=== PATIENT | female | born 1995 | race Caucasian/White ===

== ENCOUNTER 2021-04-16 05:55 | Inpatient (IN) ==
[2021-04-16] MEDS ORDERED: BUTORPHANOL 2 MG/ML VIAL IV PRN (06:03)
[2021-04-16] MEDS ORDERED: ONDANSETRON 4 MG/2 ML VIAL IV PRN (06:03)
[2021-04-16] MEDS: LACTATED RINGERS 1,000 ML IV SCH ×2 (06:23→18:11)
[2021-04-16 06:34] LABS: Basophils % 0.2 % (0.0-0.8); Eosinophils # 0.1 10*3/uL (0.0-0.87); Eosinophils % 1.4 % (0.00-10.9); Hematocrit 34.5 VOL% (35.7-47.0); Hemoglobin 11.9 GM/DL (12.0-16.0); Immature Granulocytes % 0.5 %; Immature Granulocytes Absolute 0.04 #; Lymphocytes # 2.8 10*3/uL (1.4-4.0); Lymphocytes % 31.9 % (21.3-54.2); Mean Corpuscular HGB Conc 34.5 GM/DL (32-36); Mean Platelet Volume 11.6 FL (9.6-12.0); Monocytes % 7.3 % (1.7-12.7); Neutrophils % 58.7 % (38.7-73.9); Platelet Count 180 T/CUMM (130-400); Red Blood Count 3.79 MC/CUMM (3.8-5.5); Red Cell Distribution Width 13.3 % (9.3-17.3); White Blood Count 8.9 T/CUMM (4-12)
[2021-04-16 06:57] LABS: Albumin 2.7 G/DL (3.4-5.0); Bilirubin,Total 0.4 MG/DL (0.20-1.00); Calcium 9.2 MG/DL (8.5-10.1); Osmolality,Calculated 278.4 MOS/KG (273-304); Potassium 3.5 MMOL/L (3.5-5.1); Total Protein 6.7 G/DL (6.4-8.2)
[2021-04-16] MEDS ORDERED: OXYTOCIN/LR 20 UNIT/1,000 ML BAG IV ONE (16:45)
[2021-04-16] MEDS ORDERED: ePHEDrine 50 MG/ML VIAL IV PRN (17:21)
[2021-04-16] MEDS ORDERED: LACTATED RINGERS 1,000 ML IV ONE (17:21)
[2021-04-16] MEDS ORDERED: FAMOTIDINE 20 MG/2 ML VIAL IV ONE (17:21)
[2021-04-16] MEDS ORDERED: CITRIC ACID/SODIUM CITRATE 30 ML UDCUP PO ONE (17:21)
[2021-04-16] MEDS ORDERED: NALOXONE 0.4 MG/ML VIAL IV PRN (17:22)
[2021-04-16] MEDS ORDERED: hydrOXYzine HCL 25 MG/1 ML VIAL IM PRN (17:22)
[2021-04-16] MEDS ORDERED: PROMETHAZINE 25 MG/1 ML VIAL IM ONE (17:22)
[2021-04-16] MEDS ORDERED: diphenhydrAMINE 50 MG/1 ML VIAL IV PRN ×2 (17:22)
[2021-04-16] MEDS ORDERED: LACTATED RINGERS 1,000 ML IV SCH (17:30)
[2021-04-16] MEDS: fentaNYL 2 MCG/ROPIV 0.2% EPID 100 ML EPIDURAL SCH (17:53)
[2021-04-16] MEDS: OXYTOCIN/LR 20 UNIT/1,000 ML BAG IV SCH (18:35)
[2021-04-16 19:27] LABS: Bilirubin,Urine Negative (Negative); Blood, Urine Negative (Negative); Glucose,Urine (UA) Negative (Negative); Ketones,Urine 20 mg/dL (Negative); Mucus,Urine Few /LPF (Occasional); Nitrite,Urine Negative (Negative); Protein,Urine Negative; RBC,Urine <1 /HPF (0-4); Squamous Epithelial Cell,Urine Occasional /HPF (0-10); Urine Appearance CLEAR (Clear); Urine Color Yellow (Yellow); Urine Specific Gravity 1.023 (1.001-1.035); Urine Urobilinogen < 2.0 EU/DL (0.2-1.0)
[2021-04-17] MEDS: fentaNYL 2 MCG/ROPIV 0.2% EPID 100 ML EPIDURAL SCH ×3 (01:03→16:00)
[2021-04-17] MEDS: LACTATED RINGERS 1,000 ML IV SCH ×2 (01:34→09:31)
[2021-04-17] MEDS ORDERED: INFLUENZA VIRUS VACCINE 0.5 ML SYRINGE IM ONE (09:00)
[2021-04-17] MEDS: OXYTOCIN/LR 20 UNIT/1,000 ML BAG IV SCH (10:04)
[2021-04-17] MEDS ORDERED: LIDOCAINE 2% 5 ML VIAL ONE (14:52)
[2021-04-17] MEDS ORDERED: CITRIC ACID/SODIUM CITRATE 30 ML UDCUP PO ONE (18:33)
[2021-04-17] MEDS ORDERED: ceFAZolin 3,000 MG in SYRINGE 1 EACH IV ONE (18:33)
[2021-04-17] MEDS ORDERED: FAMOTIDINE 20 MG/2 ML VIAL IV ONE (18:33)
[2021-04-17] MEDS ORDERED: TRANEXAMIC ACID 1,000 MG/10 ML VIAL ONE (19:48)
[2021-04-17] MEDS ORDERED: OXYTOCIN/LR 20 UNIT/1,000 ML BAG IV ONE ×2 (19:48→21:41)
[2021-04-17] MEDS ORDERED: SODIUM CHLORIDE 0.9% 100 ML IV ONE (19:48)
[2021-04-17] MEDS ORDERED: miSOPROStoL 200 MCG TABLET ONE (19:48)
[2021-04-17] MEDS ORDERED: METHYLERGONOVINE 0.2 MG/1 ML AMP ONE (19:49)
[2021-04-17] MEDS ORDERED: CARBOPROST TROMETHAMINE 250 MCG/ML AMP IM ONE ×2 (19:49→21:04)
[2021-04-17] MEDS ORDERED: METHYLERGONOVINE 0.2 MG/1 ML AMP IM ONE (21:02)
[2021-04-17 21:21] LABS: Cord Venous Blood HCO3 20.2 MMOL/L; Cord Venous Blood PCO2 42.1 MMHG; Cord Venous Blood PO2 23.1
[2021-04-17] MEDS ORDERED: IBUPROFEN 800 MG TABLET PO PRN (21:41)
[2021-04-17] MEDS ORDERED: ACETAMINOPHEN 325 MG TABLET PO PRN (21:41)
[2021-04-17] MEDS ORDERED: SIMETHICONE CHEW 80 MG TABLET PO PRN (21:41)
[2021-04-17] MEDS ORDERED: ONDANSETRON 4 MG/2 ML VIAL IV PRN (21:41)
[2021-04-17] MEDS ORDERED: RHO(D) IMMUNE GLOBULIN 300 MCG SYRINGE IM ONE (21:41)
[2021-04-17] MEDS ORDERED: LIDOCAINE MPF 2% /EPI 20 ML VIAL ONE (21:48)
[2021-04-17] MEDS ORDERED: LACTATED RINGERS 1,000 ML IV SCH (22:00)
[2021-04-18] MEDS: oxyCODONE/ACETAMINOPHEN 5-325 MG TABLET PO PRN ×3 (00:24→22:09)
[2021-04-18] MEDS: KETOROLAC 30 MG/1 ML VIAL IV SCH ×4 (03:09→17:31)
[2021-04-18] MEDS ORDERED: ACETAMINOPHEN 500 MG TABLET PO SCH (03:30)
[2021-04-18] MEDS ORDERED: oxyCODONE/ACETAMINOPHEN 5-325 MG TABLET PO ONE (04:35)
[2021-04-18 06:13] LABS: Basophils % 0.1 % (0.0-0.8); Hematocrit 31.7 VOL% (35.7-47.0); Hemoglobin 10.9 GM/DL (12.0-16.0); Immature Granulocytes % 0.7 %; Immature Granulocytes Absolute 0.12 #; Lymphocytes # 1.4 10*3/uL (1.4-4.0); Lymphocytes % 8.4 % (21.3-54.2); Mean Corpuscular HGB Conc 34.4 GM/DL (32-36); Mean Corpuscular Volume 92.2 FL (87-102); Mean Platelet Volume 12.2 FL (9.6-12.0); Neutrophils % 87.8 % (38.7-73.9); Platelet Count 136 T/CUMM (130-400); Red Blood Count 3.44 MC/CUMM (3.8-5.5); Red Cell Distribution Width 13.2 % (9.3-17.3); White Blood Count 16.8 T/CUMM (4-12)
[2021-04-18] MEDS: MULTIVITAMIN (PRENATAL) TABLET PO SCH (09:18)
[2021-04-18] MEDS: DOCUSATE SODIUM 100 MG CAPSULE PO SCH ×2 (09:19→22:08)
[2021-04-18 12:43] LABS: Basophils % 0.1 % (0.0-0.8); Eosinophils % 0.1 % (0.00-10.9); Hemoglobin 10.1 GM/DL (12.0-16.0); Immature Granulocytes % 0.4 %; Immature Granulocytes Absolute 0.05 #; Lymphocytes # 1.7 10*3/uL (1.4-4.0); Mean Corpuscular HGB Conc 34.8 GM/DL (32-36); Mean Corpuscular Volume 91.5 FL (87-102); Mean Platelet Volume 11.8 FL (9.6-12.0); Monocytes % 3.7 % (1.7-12.7); Neutrophils % 83.7 % (38.7-73.9); Platelet Count 176 T/CUMM (130-400); Red Blood Count 3.17 MC/CUMM (3.8-5.5); Red Cell Distribution Width 13.2 % (9.3-17.3); White Blood Count 14.1 T/CUMM (4-12)
[2021-04-18] MEDS: MAGNESIUM HYDROXIDE SUSP 30 ML UDCUP PO PRN (18:00)
[2021-04-18] MEDS: IBUPROFEN 800 MG TABLET PO PRN (22:09)
[2021-04-19] MEDS: IBUPROFEN 800 MG TABLET PO PRN (03:51)
[2021-04-19] MEDS: MAGNESIUM HYDROXIDE SUSP 30 ML UDCUP PO PRN (08:07)
[2021-04-19] MEDS: DOCUSATE SODIUM 100 MG CAPSULE PO SCH (08:07)
[2021-04-19] MEDS ORDERED: INFLUENZA VIRUS VACCINE 0.5 ML SYRINGE IM ONE (08:13)
[2021-04-19 08:39] VITALS: BP 101/55
[2021-04-19] MEDS: MULTIVITAMIN (PRENATAL) TABLET PO SCH (08:58)
== END 2021-04-19 14:32 | disposition home or self-care (01) | DRG 787 ==
LOC: N.LD 05:55 → N.OB 04-18 01:35
PROVIDERS: ADMIT Obstetrics & Gynecology; ATTEND Obstetrics & Gynecology
PROC: LDCSECT (ICD-10-PCS; 2021-04-17 20:40)